=== PATIENT | female | born 1985 | race Caucasian/White ===

== ENCOUNTER 2019-08-24 05:05 | Inpatient (IN) | payer BC ==
[2019-08-24] MEDS: Lactated Ringers 1,000 ML IV SCH ×2 (05:15→06:20)
[2019-08-24] MEDS ORDERED: Sodium Chloride 0.9% 10 ML Syringe FLUSH PRN (05:17)
[2019-08-24] MEDS ORDERED: Sodium Chloride 0.9% 10 ML SDV IV PRN (05:17)
[2019-08-24] MEDS ORDERED: ceFAZolin 2 GM in Premix Bag 1 BAG IV ONE (05:17)
[2019-08-24] MEDS ORDERED: Sodium Chloride 0.9% 2.5 ML Syringe FLUSH PRN (05:17)
[2019-08-24] MEDS ORDERED: Citric Acid/Sodium Citrate Solution 30 ML Cup PO ONE (05:17)
[2019-08-24] MEDS ORDERED: Oxytocin/0.9 % Sodium Chloride 30 UNIT/500 ML BAG IV SCH (05:30)
[2019-08-24] MEDS ORDERED: ceFAZolin 1 GM Vial ONE (06:14)
[2019-08-24] MEDS ORDERED: Sodium Chloride 0.9% 20 ML ONE (06:14)
[2019-08-24] MEDS ORDERED: Morphine PF 10 MG/10 ML SDV ONE (06:21)
[2019-08-24] MEDS ORDERED: Phenylephrine 1% 10 MG/ML SDV ONE (06:21)
[2019-08-24] MEDS ORDERED: Oxytocin 10 Units/1 ML SDV ONE (06:21)
[2019-08-24] MEDS ORDERED: Ketorolac 30 MG/ML SDV ONE (06:21)
[2019-08-24] MEDS ORDERED: Ondansetron 4 MG/2 ML SDV ONE (06:21)
--- NOTE | 2019-08-24 06:45 | PCM.PREANE ---
Preanesthetic Assessment - Anesthesia/Transfusion/Family Hx Anesthesia History: Prior Anesthesia Without Reaction Family History of Anesthesia Reaction: No Transfusion History: No Prior Transfusion(s) - Physical Assessment NPO Status Date: 08/24/19 NPO Status Time: 00:05 Height: 1.63 m Weight: 97.522 kg ASA Class: 1 - Lab Values: Laboratory Last Values WBC 8.81 K/uL (4.0-11.0) 08/23/19 10:45 RBC 4.23 M/uL (4.30-5.90) L 08/23/19 10:45 Hgb 12.4 g/dL (12.0-16.0) 08/23/19 10:45 Hct 37.7 % (36.0-46.0) 08/23/19 10:45 MCV 89.1 fL (80.0-98.0) 08/23/19 10:45 MCH 29.3 pg (27.0-32.0) 08/23/19 10:45 MCHC 32.9 g/dL (31.0-37.0) 08/23/19 10:45 RDW Std Deviation 43.3 fl (28.0-62.0) 08/23/19 10:45 RDW Coeff of Felipe 13 % (11.0-15.0) 08/23/19 10:45 Plt Count 188 K/uL (150-400) 08/23/19 10:45 MPV 11.20 fL (7.40-12.00) 08/23/19 10:45 Nucleated RBC % 0.0 /100WBC 08/23/19 10:45 Nucleated RBCs # 0 K/uL 08/23/19 10:45 Blood Type B POSITIVE 08/23/19 10:45 Antibody Screen NEGATIVE 08/23/19 10:45 - Allergies Allergies/Adverse Reactions: Allergies Allergy/AdvReac Type Severity Reaction Status Date / Time No Known Allergies Allergy Verified 08/18/19 08:31 - Acknowledgements Anesthesia Type Planned: General Anesthesia, Spinal Alternatives and Risks of Anesthesia Discussed w Pt/Guardian: Yes Pt/Guardian Understands and Agrees with Anesthesia Plan: Yes PreAnesthesia Questionnaire HEENT History: Reports: Other (See Below) Other HEENT History: wears contacts/glasses Cardiovascular History: Reports: Other (See Below) Other Cardiovascular History: murmur as a infant Respiratory History: Reports: None Gastrointestinal History: Reports: Other (See Below) Other Gastrointestinal History: occasional heartburn with Genitourinary History: Reports: None [employer] ADMINISTRATOR History: Reports: Musculoskeletal History: Reports: Fracture Other Musculoskeletal History: hx fx wrist as a teenager Neurological History: Reports: None Psychiatric History: Reports: None Endocrine/Metabolic History: Reports: None Hematologic History: Reports: None Immunologic History: Reports: None Oncologic (Cancer) History: Reports: None Dermatologic History: Reports: None - Past Surgical History Head Surgeries/Procedures: Reports: None HEENT Surgical History: Reports: Oral Surgery Other HEENT Surgeries/Procedures: wisdom teeth extraction Cardiovascular Surgical History: Reports: None Respiratory Surgical History: Reports: None GI Surgical History: Reports: None Female Surgical History: Reports: Section Endocrine Surgical History: Reports: None Neurological Surgical History: Reports: None Musculoskeletal Surgical History: Reports: None Oncologic Surgical History: Reports: None Dermatological Surgical History: Reports: None - SUBSTANCE USE Smoking Status *Q: Never Smoker Recreational Drug Use History: No - HOME MEDS Home Medications: Home Meds Pnv No.95/Ferrous Fum/Folic AC [ Vitamin Tablet] 1 tab PO DAILY [History] - CURRENT (IN HOUSE) MEDS Current Meds: Current Medications Lactated Ringer's (Ringers, Lactated) 1,000 mls @ 500 mls/hr IV BOLUS [facility] Last Admin: 08/24/19 06:20 Dose: 999 mls/hr Oxytocin/Sodium Chloride (Oxytocin 30 Unit/500 Ml-Ns) 30 unit in 500 mls @ 250 mls/hr IV TITRATE [facility] Sodium Chloride (Saline Flush) 10 ml FLUSH ASDIRECTED PRN PRN Reason: Keep Vein Open Sodium Chloride (Saline Flush) 2.5 ml FLUSH ASDIRECTED PRN PRN Reason: Keep Vein Open Sodium Chloride (Normal Saline) 10 ml IV ASDIRECTED PRN PRN Reason: IV Use Discontinued Medications Cefazolin Sodium (Ancef) Confirm Administered Dose 2 gm .ROUTE .STK-MED ONE Stop: 08/24/19 06:15 Citric Acid/Sodium Citrate (Bicitra Solution) 30 ml PO ONETIME ONE Stop: 08/24/19 05:18 Cefazolin Sodium/Dextrose 2 gm (/ Premix) 50 mls @ 100 mls/hr IV ONETIME ONE Stop: 08/24/19 05:46 Sodium Chloride (Normal Saline) Confirm Administered Dose 20 mls @ as directed .ROUTE .STK-MED ONE Stop: 08/24/19 06:15 Ketorolac Tromethamine (Toradol) Confirm Administered Dose 30 mg .ROUTE .STK- MED ONE Stop: 08/24/19 06:22 Morphine Sulfate (Duramorph Pf) Confirm Administered Dose 10 mg .ROUTE .STK-MED ONE Stop: 08/24/19 06:22 Ondansetron HCl (Zofran) Confirm Administered Dose 4 mg .ROUTE .STK-MED ONE Stop: 08/24/19 06:22 Oxytocin (Pitocin) Confirm Administered Dose 20 unit .ROUTE .STK-MED ONE Stop: 08/24/19 06:22 Phenylephrine HCl (Lucho-Synephrine) Confirm Administered Dose 10 mg .ROUTE .STK- MED ONE Stop: 08/24/19 06:22
[2019-08-24] MEDS ORDERED: Misoprostol 200 MCG Tab RECTAL PRN (07:53)
[2019-08-24] MEDS ORDERED: Methylergonovine 0.2 MG/1 ML Amp IM PRN (07:53)
[2019-08-24] MEDS ORDERED: Ondansetron 4 MG/2 ML SDV IVPUSH PRN ×2 (07:53→08:56)
[2019-08-24] MEDS ORDERED: Tranexamic Acid 1,000 MG in Sodium Chloride 0.9% 100 ML IV PRN (07:53)
[2019-08-24] MEDS ORDERED: diphenhydrAMINE 50 MG/ML SDV IVPUSH PRN ×2 (07:53→08:56)
[2019-08-24] MEDS ORDERED: Oxytocin 10 Units/1 ML SDV IM PRN (07:53)
[2019-08-24] MEDS ORDERED: Bisacodyl 10 MG Supp RECTAL PRN (07:53)
[2019-08-24] MEDS ORDERED: Lanolin 100% Cream 7 GM Tube TOP PRN (07:53)
[2019-08-24] MEDS ORDERED: Lactated Ringers 1,000 ML IV SCH (08:00)
--- NOTE | 2019-08-24 08:00 | PCM.OPNOTE ---
- General Post-Op/Procedure Note Date of Surgery/Procedure: 08/24/19 Operative Procedure(s): Repeat LTCS Findings: Viable female APGARs 9, 9 weight 6 lb 13 oz Pre Op Diagnosis: 39 week IUP. previous c section, desires repeat Post-Op Diagnosis: Same Anesthesia Technique: Spinal Primary Surgeon: Nellie Garcia Fluid Replacement, Intraop: 1,200 EBL in mLs: 600 Complications: none known Condition: Good Free Text/Narrative:: Dictation [id number]
--- NOTE | 2019-08-24 08:46 | PCM.POSTAN ---
POST ANESTHESIA ASSESSMENT - MENTAL STATUS Mental Status: Alert - RESPIRATORY Respiratory Status: Respiratory Rate WNL - CARDIOVASCULAR CV Status: Pulse Rate WNL - GASTROINTESTINAL GI Status: No Symptoms - POST OP HYDRATION Hydration Status: Adequate & Stable
[2019-08-24] MEDS ORDERED: fentaNYL 100 MCG/2 ML SDV IVPUSH PRN (08:56)
[2019-08-24] MEDS ORDERED: Nalbuphine 10 MG/1 ML Vial IVPUSH PRN (08:56)
[2019-08-24] MEDS ORDERED: Naloxone 0.4 MG/ML Syringe IVPUSH PRN (08:56)
[2019-08-24] MEDS ORDERED: Acetaminophen/oxyCODONE 325-5 MG Tab PO PRN (08:56)
[2019-08-24] MEDS: Ketorolac 30 MG/ML SDV IVPUSH SCH ×3 (12:37→20:30)
--- NOTE | 2019-08-24 15:38 | OR ---
SURGEON: Nellie Garcia M.D. DATE OF PROCEDURE: 08/24/2019 PREOPERATIVE DIAGNOSES: 1. A 39-week intrauterine . 2. Previous section, desires repeat. POSTOPERATIVE DIAGNOSES: 1. A 39-week intrauterine . 2. Previous section, desires repeat. PROCEDURE: Repeat low transverse section. PRIMARY SURGEON: Nellie Garcia MD ANESTHESIA: Spinal. ESTIMATED BLOOD LOSS: 600 mL. FLUIDS: 1200 mL of crystalloid. COMPLICATIONS: None known. FINDINGS: Viable female. score of 9 at one minute, 9 at five minutes. Weight of 6 pounds 13 ounces. Normal-appearing pelvis. DISPOSITION: Infant to nursery, mom in the PACU, stable. PROCEDURE DETAILS: Chasity is a 33-year-old, G2, P1, at 39 weeks' gestational age, who presents today for scheduled repeat delivery. Risks of procedure have been discussed. Proper consent obtained. The patient was taken to the operating room where she underwent spinal anesthetic, was then placed in dorsal supine position with leftward tilt. SCDs to lower extremities. Burt to gravity. Was prepped and draped in usual sterile fashion. Anesthesia was tested and found to be adequate. A time-out was performed. Previous Pfannenstiel scar was now excised. Subcutaneous tissue was incised down in the midline, down to the level of the rectus fascia, which was incised in midline and then lateralized bluntly and sharply on either side. Superior aspect of fascia was tented upward, dissected sharply and bluntly away from underlying muscles. In a similar aspect, this was performed in the inferior aspect of the fascia. Rectus muscles were now in the midline. Peritoneum was entered. Rectus muscles and peritoneum were now lateralized bluntly. Uterine position and position palpated. Self-retaining retractor now gently placed. There were uterovesical adhesions noted. These were gently lysed with Metzenbaum scissors and bladder flap was created and mobilized laterally away from lower uterine segment. There was a peritoneal window visualized in the lower uterine segment from previous hysterotomy. A low- transverse hysterotomy was now performed. Uterine cavity was entered with blunt- ended scalpel. Amniotomy performed with clear fluid returned. Hysterotomy was now lateralized bluntly. The 's head was flexed. Fundal pressure was applied. The head was delivered followed by anterior shoulder, posterior shoulder, and remainder of the body without difficulty. The infant's oropharynx and nares were bulb suctioned. After a delay, cord was clamped x2 and cut. was handed off to attending nursery staff. Cord arterial, cord venous, cord blood sampling obtained. The placenta was now delivered. The uterine cavity was cleared of all clot and debris. Hysterotomy repaired using 0 Vicryl in continuous running locked fashion followed by a re-imbricating layer of 0 Vicryl in continuous running fashion. Posterior aspect of the uterus was inspected, no defects or hematomas found be forming. The region was well irrigated and suction dried. Colonic gutters were cleared of all clot and debris, well irrigated and suction dried. Hysterotomy was again inspected. Any areas of serosal oozing were cauterized. Hemostasis appeared evident. A self-retaining retractor now gently placed, bladder blade was placed. Hysterotomy once again inspected, found to be hemostatic. The rectus muscle and peritoneum were now reapproximated using 0 Vicryl with inverted mattress suture technique. Anterior aspect of the muscle, posterior aspect of the fascia closely inspected, any areas of oozing were cauterized. The rectus fascia was reapproximated using 0 Vicryl in continuous running fashion, beginning laterally on either side and meeting in the midline. Subcutaneous tissue was well irrigated and suction dried, any areas of oozing were cauterized. Skin edges were reapproximated with 3-0 Vicryl in subcuticular fashion on a Yamil needle followed by re-imbrication with half-inch Steri-Strips and Mastisol. Uterus remained firm. Sponge, instrument, and needle count was correct x2. The patient tolerated the procedure well. She will go to PACU in stable condition. KRIS / JOSE /[id number]
[2019-08-24] MEDS: Docusate Sodium 100 MG Cap PO SCH (20:31)
[2019-08-24] MEDS: Simethicone 80 MG Tab.Chew PO SCH ×2 (20:40→20:41)
[2019-08-25] MEDS: Simethicone 80 MG Tab.Chew PO SCH ×3 (01:45→19:38)
[2019-08-25] MEDS: Ketorolac 30 MG/ML SDV IVPUSH SCH ×2 (02:12→08:53)
--- NOTE | 2019-08-25 08:19 | PCM48HPAN ---
Post Anesthesia Note - EVALUATION WITHIN 48HRS OF ANESTHETIC Vital Signs in Normal Range: Yes Patient Participated in Evaluation: Yes Respiratory Function Stable: Yes Airway Patent: Yes Cardiovascular Function Stable: Yes Hydration Status Stable: Yes Pain Control Satisfactory: Yes Nausea and Vomiting Control Satisfactory: Yes Mental Status Recovered: Yes Vital Signs: Last Vital Signs Temp 36.1 C 08/25/19 00:00 Pulse 87 08/25/19 03:00 Resp 16 08/25/19 03:00 BP 113/61 08/25/19 00:00 Pulse Ox 98 08/25/19 03:00 - COMMENTS/OBSERVATIONS Free Text/Narrative:: No anesthesia problems
--- NOTE | 2019-08-25 08:30 | PCM.PNPP ---
- General Info Date of Service: 08/25/19 Functional Status: Reports: Pain Controlled, Tolerating Diet, Ambulating - Review of Systems General: Reports: Fatigue. Denies: Fever, Weakness Pulmonary: Denies: Shortness of Breath Cardiovascular: Denies: Chest Pain, Palpitations, Lightheadedness Gastrointestinal: Denies: Abdominal Pain, Nausea, Vomiting Genitourinary: Denies: Flank Pain Musculoskeletal: Reports: No Symptoms Skin: Reports: No Symptoms Neurological: Reports: No Symptoms Psychiatric: Reports: No Symptoms - General Info Date of Service: 08/25/19 - Patient Data Vital Signs - Most Recent: Last Vital Signs Temp 36.1 C 08/25/19 00:00 Pulse 87 08/25/19 03:00 Resp 16 08/25/19 03:00 BP 113/61 08/25/19 00:00 Pulse Ox 98 08/25/19 03:00 Weight - Most Recent: 97.522 kg I&O - Last 24 Hours: Intake & Output 08/24/19 08/25/19 08/25/19 22:59 06:59 14:59 Output Total 1300 Balance -1300 Lab Results - Last 24 Hours: Laboratory Results - last 24 hr 08/25/19 Range/Units 05:18 Hgb 10.8 L (12.0-16.0) g/dL Hct 33.5 L (36.0-46.0) % Med Orders - Current: Current Medications Bisacodyl (Dulcolax) 10 mg RECTAL ONETIME PRN PRN Reason: Constipation Diphenhydramine HCl (Benadryl) 25 mg IVPUSH Q6H PRN PRN Reason: Itching or Nausea Diphenhydramine HCl (Benadryl) 25 mg IVPUSH Q4H PRN PRN Reason: Itching Stop: 08/25/19 08:56 Docusate Sodium (Colace) 100 mg PO BID [facility] Last Admin: 08/24/19 20:31 Dose: 100 mg Documented by: Emollient Ointment (Lansinoh Hpa) 0 gm TOP ASDIRECTED PRN PRN Reason: Sore Nipples Last Admin: 08/24/19 20:30 Dose: 1 tube Documented by: Fentanyl (Sublimaze) 50 mcg IVPUSH Q1H PRN PRN Reason: Pain (severe 7-10) Lactated Ringer's (Ringers, Lactated) 1,000 mls @ 500 mls/hr IV BOLUS [facility] [place] Last Admin: 08/24/19 06:20 Dose: 999 mls/hr Documented by: Oxytocin/Sodium Chloride (Oxytocin 30 Unit/500 Ml-Ns) 30 unit in 500 mls @ 250 mls/hr IV TITRATE [facility] [place] Tranexamic Acid 1,000 mg/ (Sodium Chloride) 110 mls @ 660 mls/hr IV ONETIME PRN PRN Reason: Bleeding Lactated Ringer's (Ringers, Lactated) 1,000 mls @ 125 mls/hr IV ASDIRECTED [facility] [place] Last Admin: 08/24/19 10:01 Dose: 125 mls/hr Documented by: Ibuprofen (Motrin) 800 mg PO Q8H PRN PRN Reason: mild pain or fever Methylergonovine Maleate (Methergine) 0.2 mg IM ONETIME PRN PRN Reason: Excessive Vaginal Bleeding Misoprostol (Cytotec) 1,000 mcg RECTAL ONETIME PRN PRN Reason: excessive bleeding Nalbuphine HCl (Nubain) 5 mg IVPUSH ASDIRECTED PRN PRN Reason: Itching Last Admin: 08/24/19 10:02 Dose: 5 mg Documented by: Naloxone HCl (Narcan) 0.1 mg IVPUSH ONETIME PRN PRN Reason: Respiratory Depression Stop: 08/25/19 08:56 Ondansetron HCl (Zofran) 4 mg IVPUSH Q4H PRN PRN Reason: Nausea/Vomiting Last Admin: 08/24/19 16:43 Dose: 4 mg Documented by: Ondansetron HCl (Zofran) 4 mg IVPUSH Q6H PRN PRN Reason: Nausea Oxycodone/Acetaminophen (Percocet 325-5 Mg) 1 tab PO Q4H PRN PRN Reason: Pain (moderate 4-6) Oxycodone/Acetaminophen (Percocet 325-5 Mg) 2 tab PO Q4H PRN PRN Reason: Pain (moderate 4-6) Oxycodone/Acetaminophen (Percocet 325-5 Mg) 2 tab PO Q6H PRN PRN Reason: Pain (moderate 4-6) Oxytocin (Pitocin) 10 unit IM ASDIRECTED PRN PRN Reason: Excessive Vaginal Bleeding Simethicone (Simethicone) 160 mg PO QID [facility] Last Admin: 08/25/19 01:45 Dose: Not Given Documented by: Sodium Chloride (Saline Flush) 10 ml FLUSH ASDIRECTED PRN PRN Reason: Keep Vein Open Sodium Chloride (Saline Flush) 2.5 ml FLUSH ASDIRECTED PRN PRN Reason: Keep Vein Open Sodium Chloride (Normal Saline) 10 ml IV ASDIRECTED PRN PRN Reason: IV Use Discontinued Medications Cefazolin Sodium (Ancef) Confirm Administered Dose 2 gm .ROUTE .STK-MED ONE Stop: 08/24/19 06:15 Citric Acid/Sodium Citrate (Bicitra Solution) 30 ml PO ONETIME ONE Stop: 08/24/19 05:18 Cefazolin Sodium/Dextrose 2 gm (/ Premix) 50 mls @ 100 mls/hr IV ONETIME ONE Stop: 08/24/19 05:46 Last Admin: 08/24/19 07:00 Dose: Not Given Documented by: Sodium Chloride (Normal Saline) Confirm Administered Dose 20 mls @ as directed .ROUTE .STK-MED ONE Stop: 08/24/19 06:15 Ketorolac Tromethamine (Toradol) Confirm Administered Dose 30 mg .ROUTE .STK-MED ONE Stop: 08/24/19 06:22 Ketorolac Tromethamine (Toradol) 30 mg IVPUSH Q6H [facility] [place] Stop: 08/25/19 08:01 Last Admin: 08/25/19 02:12 Dose: 30 mg Documented by: Morphine Sulfate (Duramorph Pf) Confirm Administered Dose 10 mg .ROUTE .STK-MED ONE Stop: 08/24/19 06:22 Ondansetron HCl (Zofran) Confirm Administered Dose 4 mg .ROUTE .STK-MED ONE Stop: 08/24/19 06:22 Oxytocin (Pitocin) Confirm Administered Dose 20 unit .ROUTE .STK-MED ONE Stop: 08/24/19 06:22 Phenylephrine HCl (Lucho-Synephrine) Confirm Administered Dose 10 mg .ROUTE .STK- MED ONE Stop: 08/24/19 06:22 - Recovery Exam Fundal Tone: Firm Fundal Level: At Umbilicus Fundal Placement: Midline Lochia Amount: Scant Lochia Color: Rubra/Red Perineum Description: Intact, Minimal Bruising/Swelling Episiotomy/Laceration: None Bladder Status: Indwelling Catheter in Place Urinary Elimination: Indwelling Catheter - Exam General: Alert, Oriented Lungs: Normal Respiratory Effort, Rhonchi Cardiovascular: Regular Rate GI/Abdominal Exam: Normal Bowel Sounds, Soft Extremities: Pedal Edema (trace). No: Sandro's Sign Skin: Warm, Dry, Intact Wound/Incisions: Healing Well, Dressing Dry and Intact Neurological: No New Focal Deficit Psy/Mental Status: Alert, Normal Affect, Normal Mood - Problem List & Annotations (1) History of section SNOMED Code(s): 726641335 Code(s): Z98.891 - HISTORY OF UTERINE SCAR FROM PREVIOUS SURGERY Status: Acute Current Visit: Yes - Problem List Review Problem List Initiated/Reviewed/Updated: Yes - My Orders Last 24 Hours: My Active Orders 08/24/19 07:53 Patient Status [ADT] Routine Ambulate [RC] PER UNIT ROUTINE Antiembolic Devices [RC] PER UNIT ROUTINE Communication Order [RC] PER UNIT ROUTINE Communication Order [RC] PER UNIT ROUTINE Communication Order [RC] Per Unit Routine May Shower [RC] ASDIRECTED Notify Provider Intake and Out [RC] ASDIRECTED Notify Provider Vital Signs [RC] ASDIRECTED RT Incentive Spirometry [RC] Q2HWA Acetaminophen/oxyCODONE [Percocet 325-5 MG] 1 tab PO Q4H PRN Acetaminophen/oxyCODONE [Percocet 325-5 MG] 2 tab PO Q4H PRN Ibuprofen [Motrin] 800 mg PO Q8H PRN Lanolin [Lansinoh HPA] See Dose Instructions TOP ASDIRECTED PRN Methylergonovine [Methergine] 0.2 mg IM ONETIME PRN Ondansetron [Zofran] 4 mg IVPUSH Q4H PRN Oxytocin [Pitocin] 10 unit IM ASDIRECTED PRN Tranexamic Acid [Cyklokapron] 1,000 mg Sodium Chloride 0.9% [Normal Saline] 100 ml IV ONETIME bisacodyL [Dulcolax] 10 mg RECTAL ONETIME PRN diphenhydrAMINE [Benadryl] 25 mg IVPUSH Q6H PRN miSOPROStoL [Cytotec] 1,000 mcg RECTAL ONETIME PRN Abdominal Binder [OM.PC] Routine Assess Lochia [WOMSER] Per Unit Routine Assess Uterine Involution [WOMSER] Per Unit Routine Breast Pump [WOMSER] Per Unit Routine Heat Therapy [OM.PC] Routine Ice Therapy [OM.PC] Routine Peripheral IV Discontinue [OM.PC] Routine Sequential Compression Device [OM.PC] Per Unit Routine 08/24/19 07:54 Cooling Warming Measures [RC] ASDIRECTED 08/24/19 08:00 Lactated Ringers [Ringers, Lactated] 1,000 ml IV ASDIRECTED 08/24/19 09:00 Docusate Sodium [Colace] 100 mg PO BID 08/24/19 Lunch Regular Diet [DIET] 08/24/19 12:00 Simethicone 160 mg PO QID - Assessment Assessment:: POD 1 status post repeat c section - Plan Plan:: Doing well overall, VS and labs are reassuring. Continue postoperative cares. Ambulate halls today, may shower. going well.
[2019-08-25] MEDS: Docusate Sodium 100 MG Cap PO SCH (08:54)
[2019-08-25] MEDS: Acetaminophen/oxyCODONE 325-5 MG Tab PO PRN ×4 (11:11→23:53)
[2019-08-25] MEDS: Ibuprofen 800 MG Tab PO PRN (19:36)
[2019-08-26] MEDS: Docusate Sodium 100 MG Cap PO SCH ×2 (00:03→08:45)
[2019-08-26] MEDS: Simethicone 80 MG Tab.Chew PO SCH (00:03)
[2019-08-26] MEDS: Ibuprofen 800 MG Tab PO PRN (04:09)
[2019-08-26] MEDS: Acetaminophen/oxyCODONE 325-5 MG Tab PO PRN ×2 (04:09→08:45)
--- NOTE | 2019-08-26 09:42 | PCM.PNPP ---
- General Info Date of Service: 08/26/19 Functional Status: Reports: Pain Controlled, Tolerating Diet, Ambulating, Urinating - Review of Systems General: Denies: Fever, Weakness, Fatigue Pulmonary: Denies: Shortness of Breath Cardiovascular: Denies: Chest Pain, Palpitations, Lightheadedness Gastrointestinal: Denies: Abdominal Pain, Nausea, Vomiting Genitourinary: Denies: Flank Pain Musculoskeletal: Reports: No Symptoms Skin: Reports: No Symptoms Neurological: Reports: No Symptoms Psychiatric: Reports: No Symptoms - General Info Date of Service: 08/26/19 - Patient Data Vital Signs - Most Recent: Last Vital Signs Temp 36.0 C L 08/26/19 09:28 Pulse 92 08/26/19 09:28 Resp 18 08/26/19 09:28 BP 115/59 L 08/26/19 09:28 Pulse Ox 98 08/26/19 09:28 Weight - Most Recent: 97.522 kg Med Orders - Current: Current Medications Bisacodyl (Dulcolax) 10 mg RECTAL ONETIME PRN PRN Reason: Constipation Diphenhydramine HCl (Benadryl) 25 mg IVPUSH Q6H PRN PRN Reason: Itching or Nausea Docusate Sodium (Colace) 100 mg PO BID [facility] Last Admin: 08/26/19 08:45 Dose: 100 mg Documented by: Emollient Ointment (Lansinoh Hpa) 0 gm TOP ASDIRECTED PRN PRN Reason: Sore Nipples Last Admin: 08/24/19 20:30 Dose: 1 tube Documented by: Fentanyl (Sublimaze) 50 mcg IVPUSH Q1H PRN PRN Reason: Pain (severe 7-10) Lactated Ringer's (Ringers, Lactated) 1,000 mls @ 500 mls/hr IV BOLUS [facility] Last Admin: 08/24/19 06:20 Dose: 999 mls/hr Documented by: Oxytocin/Sodium Chloride (Oxytocin 30 Unit/500 Ml-Ns) 30 unit in 500 mls @ 250 mls/hr IV TITRATE [facility] Tranexamic Acid 1,000 mg/ (Sodium Chloride) 110 mls @ 660 mls/hr IV ONETIME PRN PRN Reason: Bleeding Lactated Ringer's (Ringers, Lactated) 1,000 mls @ 125 mls/hr IV ASDIRECTED [facility] Last Admin: 08/24/19 10:01 Dose: 125 mls/hr Documented by: Ibuprofen (Motrin) 800 mg PO Q8H PRN PRN Reason: mild pain or fever Last Admin: 08/26/19 04:09 Dose: 800 mg Documented by: Methylergonovine Maleate (Methergine) 0.2 mg IM ONETIME PRN PRN Reason: Excessive Vaginal Bleeding Misoprostol (Cytotec) 1,000 mcg RECTAL ONETIME PRN PRN Reason: excessive bleeding Nalbuphine HCl (Nubain) 5 mg IVPUSH ASDIRECTED PRN PRN Reason: Itching Last Admin: 08/24/19 10:02 Dose: 5 mg Documented by: Ondansetron HCl (Zofran) 4 mg IVPUSH Q4H PRN PRN Reason: Nausea/Vomiting Last Admin: 08/24/19 16:43 Dose: 4 mg Documented by: Ondansetron HCl (Zofran) 4 mg IVPUSH Q6H PRN PRN Reason: Nausea Oxycodone/Acetaminophen (Percocet 325-5 Mg) 1 tab PO Q4H PRN PRN Reason: Pain (moderate 4-6) Last Admin: 08/26/19 08:45 Dose: 1 tab Documented by: Oxycodone/Acetaminophen (Percocet 325-5 Mg) 2 tab PO Q4H PRN PRN Reason: Pain (moderate 4-6) Last Admin: 08/25/19 23:53 Dose: 2 tab Documented by: Oxycodone/Acetaminophen (Percocet 325-5 Mg) 2 tab PO Q6H PRN PRN Reason: Pain (moderate 4-6) Oxytocin (Pitocin) 10 unit IM ASDIRECTED PRN PRN Reason: Excessive Vaginal Bleeding Simethicone (Simethicone) 160 mg PO QID [facility] Last Admin: 08/26/19 00:03 Dose: 160 mg Documented by: Sodium Chloride (Saline Flush) 10 ml FLUSH ASDIRECTED PRN PRN Reason: Keep Vein Open Sodium Chloride (Saline Flush) 2.5 ml FLUSH ASDIRECTED PRN PRN Reason: Keep Vein Open Sodium Chloride (Normal Saline) 10 ml IV ASDIRECTED PRN PRN Reason: IV Use Discontinued Medications Cefazolin Sodium (Ancef) Confirm Administered Dose 2 gm .ROUTE .[facility] ONE Stop: 08/24/19 06:15 Citric Acid/Sodium Citrate (Bicitra Solution) 30 ml PO ONETIME ONE Stop: 08/24/19 05:18 Diphenhydramine HCl (Benadryl) 25 mg IVPUSH Q4H PRN PRN Reason: Itching Stop: 08/25/19 08:56 Cefazolin Sodium/Dextrose 2 gm (/ Premix) 50 mls @ 100 mls/hr IV ONETIME ONE Stop: 08/24/19 05:46 Last Admin: 08/24/19 07:00 Dose: Not Given Documented by: Sodium Chloride (Normal Saline) Confirm Administered Dose 20 mls @ as directed .ROUTE .STK-MED ONE Stop: 08/24/19 06:15 Ketorolac Tromethamine (Toradol) Confirm Administered Dose 30 mg .ROUTE .STK-MED ONE Stop: 08/24/19 06:22 Ketorolac Tromethamine (Toradol) 30 mg IVPUSH Q6H [facility] Stop: 08/25/19 08:01 Last Admin: 08/25/19 08:53 Dose: 30 mg Documented by: Morphine Sulfate (Duramorph Pf) Confirm Administered Dose 10 mg .ROUTE .STK-MED ONE Stop: 08/24/19 06:22 Naloxone HCl (Narcan) 0.1 mg IVPUSH ONETIME PRN PRN Reason: Respiratory Depression Stop: 08/25/19 08:56 Ondansetron HCl (Zofran) Confirm Administered Dose 4 mg .ROUTE .STK-MED ONE Stop: 08/24/19 06:22 Oxytocin (Pitocin) Confirm Administered Dose 20 unit .ROUTE .STK-MED ONE Stop: 08/24/19 06:22 Phenylephrine HCl (Lucho-Synephrine) Confirm Administered Dose 10 mg .ROUTE .STK- MED ONE Stop: 08/24/19 06:22 - Recovery Exam Fundal Tone: Firm Fundal Level: 1 Fingerbreadths Below Umbilicus Fundal Placement: Midline Lochia Amount: Scant Lochia Color: Rubra/Red Perineum Description: Intact, Minimal Bruising/Swelling Episiotomy/Laceration: None Bladder Status: Voiding Urinary Elimination: Voided - Exam Neck: Supple Lungs: Normal Respiratory Effort Cardiovascular: Regular Rate, Regular Rhythm GI/Abdominal Exam: Normal Bowel Sounds, Soft Extremities: Pedal Edema (trace). No: Sandro's Sign Skin: Warm, Dry, Intact Wound/Incisions: Healing Well, No Drainage. No: Erythema Neurological: No New Focal Deficit Psy/Mental Status: Alert, Normal Affect, Normal Mood - Problem List & Annotations (1) History of section SNOMED Code(s): 862344063 Code(s): Z98.891 - HISTORY OF UTERINE SCAR FROM PREVIOUS SURGERY Status: Acute Current Visit: Yes - Problem List Review Problem List Initiated/Reviewed/Updated: Yes - My Orders Last 24 Hours: My Active Orders 08/26/19 09:39 Ready for Discharge [RC] PER UNIT ROUTINE - Assessment Assessment:: POD 2 status post repeat c section - Plan Plan:: Patient doing well overall. VS are reassuring. Patient is ready to go home today. Discharge instructions reviewed. Follow up at [facility] 2 and 6 weeks. Discharge to home today.
== END 2019-08-26 12:09 | disposition home or self-care (01) | DRG 540 ==
LOC: MW.OB 05:05
PROVIDERS: ADMIT Obstetrics & Gynecology; ATTEND Obstetrics & Gynecology
PROC: 10D00Z1 Extraction of Products of Conception, Low, Open Approach (ICD-10-PCS; principal; 2019-08-24)
DX: O34.211 Maternal care for low transverse scar from previous cesarean delivery (principal); Z37.0 Single live birth; Z3A.39 39 weeks gestation of pregnancy
CPT/HCPCS: 36415; 51702; 59025; 82803; 85014; 85018; 85027; 86850; 86900; 86901; A9270-GY; J0690; J1885; J2270; J2300; J2370; J2405; J2590; J7120

== ENCOUNTER 2022-10-14 08:00 | Inpatient (IN) | payer BC ==
[2022-10-15] MEDS ORDERED: Morphine PF 10 MG/10 ML SDV ONE (10:00)
[2022-10-15] MEDS ORDERED: Dexmedetomidine 200 MCG/2 ML SDV ONE (10:01)
[2022-10-15] MEDS: Lactated Ringers 1,000 ML IV SCH ×2 (10:05→10:45)
[2022-10-15] MEDS ORDERED: Ondansetron 4 MG/2 ML SDV ONE (10:10)
[2022-10-15] MEDS ORDERED: Sodium Chloride 0.9% 2.5 ML Syringe FLUSH PRN (10:16)
[2022-10-15] MEDS ORDERED: Citric Acid/Sodium Citrate Solution 30 ML Cup PO ONE (10:16)
[2022-10-15] MEDS ORDERED: ceFAZolin 2 GM in Sodium Chloride 0.9% 50 ML IV ONE (10:16)
[2022-10-15] MEDS ORDERED: Sodium Chloride 0.9% 10 ML Syringe FLUSH PRN (10:16)
[2022-10-15] MEDS ORDERED: Sodium Chloride 0.9% 20 ML SDV IV PRN (10:16)
[2022-10-15] MEDS ORDERED: Oxytocin/0.9 % Sodium Chloride 30 UNIT/500 ML BAG IV SCH (10:30)
[2022-10-15] MEDS ORDERED: diphenhydrAMINE 50 MG/ML SDV IVPUSH PRN ×2 (10:38→12:08)
[2022-10-15] MEDS ORDERED: ePHEDrine 50 MG/ML SDV IVPUSH PRN (10:38)
[2022-10-15] MEDS ORDERED: Ondansetron 4 MG/2 ML SDV IVPUSH PRN ×3 (10:38→16:00)
[2022-10-15 10:39] LABS: HEMATOCRIT 35.5 % (36.0-46.0); HEMOGLOBIN 12.2 g/dL (12.0-16.0); MEAN CORPUSCULAR HEMOGLOBIN 29.8 pg (27.0-32.0); MEAN CORPUSCULAR HGB CONC 34.4 g/dL (31.0-37.0); MEAN CORPUSCULAR VOLUME 86.8 fL (80.0-98.0); MEAN PLATELET VOLUME 11.5 fL (7.40-12.00); RED BLOOD CELL COUNT 4.09 M/uL (4.30-5.90); WHITE BLOOD CELL COUNT,WBC 5.45 K/uL (4.0-11.0)
[2022-10-15] MEDS ORDERED: ceFAZolin 2 GM Vial ONE (11:13)
[2022-10-15] MEDS ORDERED: Water For Injection, Sterile 20 ML ONE (11:13)
[2022-10-15] MEDS ORDERED: Oxytocin 10 Units/1 ML SDV ONE (11:22)
[2022-10-15] MEDS ORDERED: Ropivacaine 0.5% 5 MG/ML 30 ML SDV ONE (11:26)
[2022-10-15] MEDS ORDERED: Acetaminophen/oxyCODONE 325-5 MG Tab PO PRN (12:08)
[2022-10-15] MEDS ORDERED: Methylergonovine 0.2 MG/1 ML Amp IM PRN (12:08)
[2022-10-15] MEDS ORDERED: Bisacodyl 10 MG Supp RECTAL PRN (12:08)
[2022-10-15] MEDS ORDERED: Misoprostol 200 MCG Tab RECTAL PRN (12:08)
[2022-10-15] MEDS ORDERED: Oxytocin 10 Units/1 ML SDV IM PRN (12:08)
[2022-10-15] MEDS ORDERED: Tranexamic Acid 1,000 MG in Sodium Chloride 0.9% 100 ML IV PRN (12:08)
[2022-10-15] MEDS ORDERED: Lactated Ringers 1,000 ML IV SCH (12:15)
[2022-10-15] MEDS ORDERED: Ketorolac 30 MG/ML SDV IVPUSH SCH (12:15)
[2022-10-15 12:17] LABS: PH,UMBILICAL ARTERIAL 7.261 (7.18-7.38)
[2022-10-15 12:18] LABS: PH,UMBILICAL VENOUS 7.302 (7.25-7.45)
[2022-10-15] MEDS: Ketorolac 30 MG/ML SDV IVPUSH SCH (18:37)
[2022-10-15] MEDS: Docusate Sodium 100 MG Cap PO SCH (22:13)
[2022-10-16] MEDS: Simethicone 80 MG Tab.Chew PO SCH ×4 (00:09→23:26)
[2022-10-16] MEDS: Ketorolac 30 MG/ML SDV IVPUSH SCH ×3 (00:10→12:22)
[2022-10-16] MEDS: Lanolin 100% Cream 7 GM Tube TOP PRN ×2 (04:14→20:31)
[2022-10-16 07:00] LABS: HEMATOCRIT 33.6 % (36.0-46.0)
[2022-10-16] MEDS: Docusate Sodium 100 MG Cap PO SCH ×2 (07:53→20:30)
[2022-10-16] MEDS: Acetaminophen/oxyCODONE 325-5 MG Tab PO PRN (17:27)
[2022-10-16] MEDS: Ibuprofen 800 MG Tab PO PRN (20:29)
[2022-10-16] MEDS: Acetaminophen 500 MG Tab PO PRN (23:24)
[2022-10-17] MEDS: Ibuprofen 800 MG Tab PO PRN (04:15)
[2022-10-17] MEDS: Acetaminophen 500 MG Tab PO PRN (06:33)
[2022-10-17] MEDS: Simethicone 80 MG Tab.Chew PO SCH ×3 (06:36→07:37)
[2022-10-17] MEDS: Docusate Sodium 100 MG Cap PO SCH ×2 (07:35→10:03)
[2022-10-17] MEDS: Acetaminophen/oxyCODONE 325-5 MG Tab PO PRN (10:15)
== END 2022-10-17 14:44 | disposition home or self-care (01) | DRG 540 ==
LOC: MW.OB 10-15 09:38
PROVIDERS: ADMIT Obstetrics & Gynecology; ATTEND Obstetrics & Gynecology
PROC: 10D00Z1 Extraction of Products of Conception, Low, Open Approach (ICD-10-PCS; principal; 2022-10-15)
DX: O24.420 Gestational diabetes mellitus in childbirth, diet controlled (principal); Z37.0 Single live birth; O34.211 Maternal care for low transverse scar from previous cesarean delivery; O99.214 Obesity complicating childbirth; Z3A.39 39 weeks gestation of pregnancy
CPT/HCPCS: 01961; 36415; 59025; 64488; 82803; 85014; 85018; 85027; 86592; 86850; 86900; 86901; A9270-GY; J0131; J0690; J1885; J2274; J2405; J2590; J2795; J3490; J7120